=== PATIENT | female | born 1965 | race American Indian/Alaskan Native ===

== ENCOUNTER 2017-08-03 19:29 | Emergency (ER) | payer MEDICAID ==
[2017-08-03] MEDS ORDERED: MOTRIN PO ONE (21:08)
[2017-08-03] MEDS ORDERED: TYLENOL PO ONE (21:08)
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
[2017-08-04 00:27] VITALS: BP 167/95
== END 2017-08-03 21:30 | disposition home or self-care (01) ==
LOC: EDBD → ED 19:29
DX: M25.561 Pain in right knee (principal); M25.562 Pain in left knee; M54.5 Low back pain; M25.519 Pain in unspecified shoulder; F17.200 Nicotine dependence, unspecified, uncomplicated